=== PATIENT | male | born 1990 | race Caucasian/White ===

== ENCOUNTER 2022-02-25 19:35 | Emergency (ER) | payer MEDICAID ==
[~2022-02-25] VITALS: Ht 170.2 cm; Wt 113.4 kg
[2022-02-25 19:43] VITALS: BP_SYST 142
--- NOTE | 2022-02-25 19:46 | NUR ---
Patient to ER bed H1 to gown for evaluation. Side rails up.
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
--- NOTE | 2022-02-25 19:50 | NUR ---
Dr Peter evaluating patient at bedside
[2022-02-25 20:00] VITALS: BP_SYST 142
--- NOTE | 2022-02-25 20:00 | NUR ---
Patient given written and verbal discharge instructions and verbalizes understanding. ER MD discussed with patient the results and treatment provided. Patient in stable condition. ID arm band removed. No Rx given. Patient educated on pain management and to follow up with PMD. Pain Scale 0/10. Opportunity for questions provided and answered. Medication side effect fact sheet provided.
== END 2022-02-25 20:00 | disposition home or self-care (01) ==
LOC: SED 19:35
DX: S80.811A Abrasion, right lower leg, initial encounter (principal); Z79.899 Other long term (current) drug therapy; W50.0XXA Accidental hit or strike by another person, initial encounter; Y93.89 Activity, other specified; Y92.89 Other specified places as the place of occurrence of the external cause; Y99.8 Other external cause status
CPT/HCPCS: 99283